=== PATIENT | male | born 1965 | race Caucasian/White ===

== ENCOUNTER 2017-01-07 19:29 | Emergency (ER) | payer MEDICAID ==
[~2017-01-07] VITALS: Ht 182.9 cm; Wt 77.1 kg
[~2017-01-07 19:29] MED LIST: ALPR0.25 PO
[2017-01-07 19:59] VITALS: BP 137/75
== END 2017-01-07 19:59 | disposition home or self-care (01) ==
LOC: ER 19:30
DX: F15.10 Other stimulant abuse, uncomplicated (principal); F32.9 Major depressive disorder, single episode, unspecified; F41.9 Anxiety disorder, unspecified; I10 Essential (primary) hypertension; J45.909 Unspecified asthma, uncomplicated; F17.200 Nicotine dependence, unspecified, uncomplicated
CPT/HCPCS: 99283; A4606; Z7610

== ENCOUNTER 2017-08-01 03:03 | Emergency (ER) | payer MEDICAID ==
[~2017-08-01] VITALS: Ht 182.9 cm; Wt 81.6 kg
[2017-08-01 03:16] VITALS: BP 120/69
--- NOTE | 2017-08-01 03:16 | NUR ---
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 PT ADMITS TO USING METH WITHIN THE LAST 24 HRS. PT AOX3 RR EVEN AND UNLABORED. NO SOB NOTED. NAD NOTED. NO NVD AT THIS TIME. PT GOWNED AND PLACED ON MONITOR WAITING FOR MD LAGUNA.
--- NOTE | 2017-08-01 03:25 | NUR ---
DR. COY AT BEDSIDE FOR EVAL.
== END 2017-08-01 03:49 | disposition home or self-care (01) ==
LOC: ER 03:04
DX: F41.9 Anxiety disorder, unspecified (principal); F15.10 Other stimulant abuse, uncomplicated; F32.9 Major depressive disorder, single episode, unspecified; I10 Essential (primary) hypertension; J45.909 Unspecified asthma, uncomplicated; F10.10 Alcohol abuse, uncomplicated; F17.200 Nicotine dependence, unspecified, uncomplicated
CPT/HCPCS: A4606; Z7610

== ENCOUNTER 2018-04-24 03:55 | Emergency (ER) | payer MEDICAID ==
[~2018-04-24] VITALS: Ht 182.9 cm; Wt 77.1 kg
--- NOTE | 2018-04-24 04:16 | NUR ---
DR VELZACO AT BEDSIDE FOR EVAL.
[2018-04-24 05:04] VITALS: BP 151/101
== END 2018-04-24 05:49 | disposition home or self-care (01) ==
LOC: ER 04:01
DX: F15.10 Other stimulant abuse, uncomplicated (principal); I10 Essential (primary) hypertension; J45.909 Unspecified asthma, uncomplicated; F32.9 Major depressive disorder, single episode, unspecified; F41.9 Anxiety disorder, unspecified; F17.200 Nicotine dependence, unspecified, uncomplicated; Z60.2 Problems related to living alone
CPT/HCPCS: A4606; Z7610

== ENCOUNTER 2018-04-24 11:08 | Emergency (ER) | payer MEDICAID ==
[~2018-04-24] VITALS: Ht 182.9 cm; Wt 66.7 kg
[2018-04-24] MEDS ORDERED: OLANZAPINE 5 MG TABLET PO ONE (11:30)
[2018-04-24] MEDS ORDERED: LORAZEPAM 1 MG TABLET PO ONE (11:30)
[2018-04-24] MEDS ORDERED: LORAZEPAM 1 MG TABLET ONE (11:32)
[2018-04-24] MEDS ORDERED: OLANZAPINE 5 MG TABLET ONE (11:32)
[2018-04-24 11:39] LABS: BASOPHILS % (AUTO) 0.3 % (0.0-2.0); EOSINOPHILS % (AUTO) 0.1 % (0.0-6.0); HEMATOCRIT 43 % (39-51); HEMOGLOBIN 14.6 g/dL (13.5-17.5); LYMPHOCYTES # (AUTO) 0.9 /CMM (0.8-4.8); LYMPHOCYTES % (AUTO) 9.3 % (20.0-44.0); MEAN CORPUSCULAR HGB CONC 34 g/dl (31.0-36.0); MEAN CORPUSCULAR VOLUME 104 fL (80-96); MONOCYTES # (AUTO) 0.9 /CMM (0.1-1.30); MONOCYTES % (AUTO) 9.2 % (2.0-12.0); NEUTROPHILS # (AUTO) 7.5 /CMM (1.8-8.9); NEUTROPHILS % (AUTO) 81.1 % (43.0-81.0); PLATELET COUNT (AUTO) 208 /CMM (150-450); RED BLOOD CELL COUNT(AUTO) 4.14 MIL/uL (4.5-6.0); WHITE BLOOD COUNT (AUTO) 9.3 K/uL (4.3-11.0)
[2018-04-24 11:50] LABS: CALCIUM, SERUM 9.2 mg/dL (8.5-10.1); CARBON DIOXIDE 27 mmol/L (21-32); CHLORIDE 105 mmol/L (98-107); CREATININE 1.3 mg/dL (0.6-1.3); GLUCOSE 72 mg/dL (74-106); POTASSIUM 3.5 mmol/L (3.5-5.1); SODIUM SERUM 144 mmol/L (136-145); UREA NITROGEN, BLOOD 20 mg/dL (7-18)
[2018-04-24 11:56] LABS: ALANINE AMINOTRANSFERASE 37 U/L (12-78); ALBUMIN 4.3 g/dL (3.4-5.0); ALKALINE PHOSPHATASE 69 U/L (46-116); ASPARTATE AMINOTRANSFERASE 58 U/L (15-37); BILIRUBIN,DIRECT 0.3 mg/dL (0.0-0.2); BILIRUBIN,TOTAL 1.2 mg/dL (0.2-1.0); SALICYLATE 0.3 mg/dL (2.8-20.0); TOTAL PROTEIN, SERUM 7.6 g/dL (6.4-8.2)
[2018-04-24 11:57] LABS: ACETAMINOPHEN 0 ug/ml (10-30); ALCOHOL, BLOOD < 3 mg/dL (0-0)
[2018-04-24 12:56] VITALS: BP 144/101
--- NOTE | 2018-04-24 12:58 | NUR ---
Patient discharged to home in stable condition. Written and verbal after care instructions given. Patient verbalizes understanding of instruction.
== END 2018-04-24 12:58 | disposition home or self-care (01) ==
LOC: ER 11:09
DX: F15.10 Other stimulant abuse, uncomplicated (principal); I10 Essential (primary) hypertension; J45.909 Unspecified asthma, uncomplicated; F32.9 Major depressive disorder, single episode, unspecified; F41.9 Anxiety disorder, unspecified; F17.200 Nicotine dependence, unspecified, uncomplicated; Z60.2 Problems related to living alone
CPT/HCPCS: 36415; 80048; 80076; 80329; 85025; 99284; G0480 ×2; A4606; Z7610

== ENCOUNTER 2019-07-19 14:01 | Emergency (ER) | payer MEDICAID ==
[~2019-07-19] VITALS: Ht 182.9 cm; Wt 74.8 kg
--- NOTE | 2019-07-19 14:29 | NUR ---
called to triage,no answer
[2019-07-19 14:52] VITALS: BP 150/78
[2019-07-19] MEDS ORDERED: LIDOCAINE 1%-EPI 1:100,000 20 ML VIAL ONE (19:28)
[2019-07-19] MEDS ORDERED: LIDOCAINE 1%-EPI 1:100,000 20 ML VIAL TP ONE (19:30)
[2019-07-19] MEDS ORDERED: TDAP [DIPH/PERTUSSIS/TET] 0.5 ML VIAL IM ONE ×2 (19:30→20:27)
[2019-07-19] MEDS ORDERED: CEFTRIAXONE 1 G VIAL IM ONE (21:00)
[2019-07-19] MEDS ORDERED: CEFTRIAXONE 1 G VIAL ONE (21:24)
[2019-07-19] MEDS ORDERED: LIDOCAINE /MPF 1% VIAL 5 ML VIAL ONE (21:25)
--- NOTE | 2019-07-19 22:54 | NUR ---
Patient discharged to home in stable condition. Written and verbal after care instructions given. Patient verbalizes understanding of instruction. Pt ambulatory with a steady gait
[2019-07-23] MEDS ORDERED: HYDR-4384 PO (12:00)
[2019-07-23] MEDS ORDERED: SULF1TAB48 PO (12:00)
== END 2019-07-19 22:55 | disposition home or self-care (01) ==
LOC: ER 14:06
DX: K61.0 Anal abscess (principal); I10 Essential (primary) hypertension; J45.909 Unspecified asthma, uncomplicated; F32.9 Major depressive disorder, single episode, unspecified; F41.9 Anxiety disorder, unspecified; F17.200 Nicotine dependence, unspecified, uncomplicated; Z60.2 Problems related to living alone; Z79.899 Other long term (current) drug therapy
CPT/HCPCS: 46050; 90471; 90715; 96372; 99284; A6403; A6407; J0696; J3490 ×2

== ENCOUNTER 2019-07-21 13:32 | Inpatient (IN) | payer MEDICAID ==
[~2019-07-21] VITALS: Ht 182.9 cm; Wt 73.5 kg
--- NOTE | 2019-07-21 13:49 | NUR ---
"I was here the other night have a wound at R butt cheek" pt awake, alert, -sob, nadn oted, vss, pendburakg md pani[place]
[2019-07-21 14:32] LABS: BASOPHILS # (AUTO) 0.1 /CMM (0.0-0.2); BASOPHILS % (AUTO) 1.5 % (0.0-2.0); EOSINOPHILS % (AUTO) 2.6 % (0.0-6.0); HEMATOCRIT 37 % (39-51); HEMOGLOBIN 12.7 g/dL (13.5-17.5); LYMPHOCYTES # (AUTO) 1.7 /CMM (0.8-4.8); LYMPHOCYTES % (AUTO) 21.2 % (20.0-44.0); MEAN CORPUSCULAR HGB CONC 34 g/dl (31.0-36.0); MEAN CORPUSCULAR VOLUME 108 fL (80-96); MONOCYTES # (AUTO) 0.9 /CMM (0.1-1.30); MONOCYTES % (AUTO) 11.2 % (2.0-12.0); NEUTROPHILS # (AUTO) 5.1 /CMM (1.8-8.9); NEUTROPHILS % (AUTO) 63.5 % (43.0-81.0); PLATELET COUNT (AUTO) 321 /CMM (150-450); RED BLOOD CELL COUNT(AUTO) 3.46 MIL/uL (4.5-6.0)
[2019-07-21 14:36] LABS: CALCIUM, SERUM 8.6 mg/dL (8.5-10.1); CREATININE 1.2 mg/dL (0.6-1.3); POTASSIUM 4.2 mmol/L (3.5-5.1)
[2019-07-21] MEDS ORDERED: CT SWABBABLE VALVE TRANS SET 1 EA INFUS.SET MC ONE (15:07)
[2019-07-21] MEDS ORDERED: IOHEXOL-300 100 ML VIAL IV ONE (15:07)
[2019-07-21] MEDS ORDERED: IV NS 0.9% 250 ML IV ONE (15:10)
[2019-07-21] MEDS ORDERED: VANCOMYCIN 1 GM in IV D5W 250 ML IV ONE (17:00)
[2019-07-21] MEDS ORDERED: VANCOMYCIN 1 GM VIAL ONE ×2 (17:02→22:08)
--- NOTE | 2019-07-21 17:12 | NUR ---
CALLED NURSING SUP FOR M/S BED.
[2019-07-21] MEDS ORDERED: ACYC800T PO (17:18)
[2019-07-21] MEDS ORDERED: GABA-534 PO (17:18)
[2019-07-21] MEDS ORDERED: MULT-447 PO (17:18)
[2019-07-21] MEDS ORDERED: ABAC1TAB15 PO (17:18)
[2019-07-21] MEDS ORDERED: OMEG1CAP PO (17:18)
[2019-07-21] MEDS ORDERED: PROP10TA68 PO (17:18)
[2019-07-21] MEDS ORDERED: ATOR10TA PO (17:18)
[2019-07-21] MEDS ORDERED: ESCI10TA PO (17:18)
[2019-07-21] MEDS ORDERED: TRAZ-257 PO (17:18)
[2019-07-21] MEDS ORDERED: DIPH-824 PO (17:18)
--- NOTE | 2019-07-21 20:03 | NUR ---
REPORT GIVEN TO MONIQUE MON FOR W[facility] PT WILL BE TRANPOSRTED TO 2ND FLOOR
[2019-07-21 20:19] VITALS: BP 122/75
--- NOTE | 2019-07-21 20:27 | NUR ---
PT TRANSPORTED TO 2ND FLOOR
[2019-07-21] MEDS ORDERED: MAG HYDROX/AL HYDROX/SIMETH 30 ML UDC PO PRN (20:30)
[2019-07-21] MEDS ORDERED: MORPHINE SULFATE INJ 2 MG/ML DISP.SYRIN IV PRN (20:30)
[2019-07-21] MEDS ORDERED: HYDROCODONE/APAP 5/325MG 1 EACH TABLET PO PRN (20:30)
[2019-07-21] MEDS ORDERED: diphenhydrAMINE HCL 25 MG CAPSULE PO PRN (20:30)
[2019-07-21] MEDS ORDERED: MAGNESIUM HYDROXIDE 30 ML UDC PO PRN (20:30)
[2019-07-21] MEDS ORDERED: Z GUARD REMEDY 2 OZ OINT TP PRN (20:30)
[2019-07-21] MEDS ORDERED: ACETAMINOPHEN 325 MG TABLET PO PRN (20:30)
[2019-07-21] MEDS ORDERED: ONDANSETRON HCL/PF 4 MG/2 ML VIAL IVP PRN (20:30)
[2019-07-21] MEDS ORDERED: FEE PK DOSING 1 MIN EA MC ONE (20:31)
--- NOTE | 2019-07-21 20:53 | NUR ---
KRISTINE NARAYAN PATIENT C/O LATHA NICOLAS ORDERED REGULAR DIET RIGHT NOW AND NPO EXCEPT MEDS AT 0000 07/22/2019 READ BACK AND VERIFIED ORDERS NOTED AND CARRIED OUT
[2019-07-21] MEDS: IV NS 0.9% 1,000 ML IV PRN (21:15)
[2019-07-21] MEDS: ATORVASTATIN 10 MG TABLET PO SCH (21:59)
[2019-07-21] MEDS: TRAZODONE 50 MG TABLET PO SCH (21:59)
[2019-07-21] MEDS: GABAPENTIN 300 MG CAPSULE PO SCH (21:59)
[2019-07-21] MEDS ORDERED: Abacavir/Dolutegravir/Lamivudi (Triumeq Tablet) PO SCH (22:00)
--- NOTE | 2019-07-21 22:00 | NUR ---
RECEIVE PT VIA JOSE ROBERTO FROM [facility] 2018 PT A/O X 4, NO APPARENT DISTRESS, RESPIRATIONS EVEN AND UNLABORED. COMPLAINING OF PERSISTENT PERIANAL ABSCESS. HEAD TO TOE ASSESSMENT IS DONE. NO C/O OF PAIN. DENIES VOMITING AND DIARRHEA. KEPT CLEAN, DRY AND COMFORTABLE. WILL CONTINUE TO MONITOR
[2019-07-21] MEDS ORDERED: ACYCLOVIR 200 MG CAPSULE ONE (22:07)
[2019-07-21] MEDS: ACYCLOVIR 800 MG TABLET PO SCH (22:13)
[2019-07-21] MEDS ORDERED: ACYCLOVIR 200 MG CAPSULE PO SCH (23:30)
[2019-07-22] MEDS: VANCOMYCIN 0.75 GM in IV D5W 250 ML IV SCH ×3 (00:59→16:17)
--- NOTE | 2019-07-22 06:36 | NUR ---
PT ASLEEP AND EASILY AWAKEN, SLEPT WELL. NOT IN APPARENT DISTRESS. AM CARE RENDERED, KEPT CLEAN, DRY AND COMFORTABLE. NEEDS ATTENDED AND ANTICIPATED. SAFETY MEASURES AT ALL TIMES. WILL ENDORSE NEXT SHIFT POC.
--- NOTE | 2019-07-22 07:38 | NUR ---
RN OPENING NOTES Patient received on room air, no sob noted, patient denies pain at this time. NPO except meds at this time. L AC 18 with NS @ 75 ml per hour. Patient lying down comfortably on her bed with no issues. Bed at the lowest setting, call light within reach, side rails up x2.
[2019-07-22 08:00] VITALS: BP 100/58
[2019-07-22 08:30] LABS: BASOPHILS % (AUTO) 0.8 % (0.0-2.0); EOSINOPHILS % (AUTO) 4.5 % (0.0-6.0); HEMATOCRIT 36 % (39-51); HEMOGLOBIN 12.2 g/dL (13.5-17.5); LYMPHOCYTES # (AUTO) 1.5 /CMM (0.8-4.8); LYMPHOCYTES % (AUTO) 25.7 % (20.0-44.0); MEAN CORPUSCULAR HGB CONC 34 g/dl (31.0-36.0); MEAN CORPUSCULAR VOLUME 107 fL (80-96); MONOCYTES # (AUTO) 0.7 /CMM (0.1-1.30); MONOCYTES % (AUTO) 11.7 % (2.0-12.0); NEUTROPHILS # (AUTO) 3.4 /CMM (1.8-8.9); NEUTROPHILS % (AUTO) 57.3 % (43.0-81.0); PLATELET COUNT (AUTO) 312 /CMM (150-450); RED BLOOD CELL COUNT(AUTO) 3.36 MIL/uL (4.5-6.0); WHITE BLOOD COUNT (AUTO) 5.9 K/uL (4.3-11.0)
[2019-07-22] MEDS: ESCITALOPRAM OXALATE (10 MG) 10 MG TABLET PO SCH (09:00)
[2019-07-22] MEDS: MULTIVIT W/MINERALS 1 TAB TABLET PO SCH (09:00)
[2019-07-22] MEDS: DOCUSATE SODIUM 100 MG CAPSULE PO SCH ×2 (09:00→16:39)
[2019-07-22] MEDS ORDERED: Medication Not On Formulary EA (Omega-3 Fatty Acids/Fish Oil (Fish Oil 1,000 Mg Capsule) PO SCH (09:00)
[2019-07-22] MEDS: PROPRANOLOL HCL 10 MG TABLET PO SCH ×2 (09:00→16:39)
[2019-07-22 09:48] LABS: CALCIUM, SERUM 8.3 mg/dL (8.5-10.1); CREATININE 0.9 mg/dL (0.6-1.3); MAGNESIUM 1.8 mg/dL (1.8-2.4); PHOSPHORUS 3.7 mg/dL (2.5-4.9); POTASSIUM 4.5 mmol/L (3.5-5.1)
[2019-07-22 10:01] LABS: THYROID STIMULATING HORMONE 2.386 uIU/mL (0.358-3.74)
[2019-07-22] MEDS: LORAZEPAM 1 MG TABLET PO PRN ×2 (10:56→16:36)
[2019-07-22 16:00] VITALS: BP 108/71
--- NOTE | 2019-07-22 18:16 | NUR ---
RN CLOSING NOTES Patient remains on room air, no sob noted, patient denies pain at this time. Patient remains NPO except medications at this time. L AC 18 NS @ 75 ml per hour running. Wound culture sent to lab. Bed at the lowest setting, call light within reach, side rails up x2. Will give report to NOC RN for [facility]ILBER bedside.
[2019-07-22] MEDS ORDERED: LIDOCAINE 1%-EPI 1:100,000 20 ML VIAL TP STA (18:57)
--- NOTE | 2019-07-22 19:30 | NUR ---
MS RN RECEIVED PATIENT IN BED AWAKE WATCHING TV A/O X 4, STABLE AND NOT IN DISTRESS. WILL CONTINUE TO MONITOR
[2019-07-22 20:00] VITALS: BP 110/56
[2019-07-22] MEDS ORDERED: LIDOCAINE 2%-EPI 1:100,000 30 ML VIAL ONE (20:02)
--- NOTE | 2019-07-22 20:15 | NUR ---
S/P I/D LEFT BUTTOCKS BY DR. ERVIN. PT TOLERATED PROCEDURE.
[2019-07-22] MEDS: ACYCLOVIR 800 MG TABLET PO SCH (21:39)
[2019-07-22] MEDS: ATORVASTATIN 10 MG TABLET PO SCH (21:39)
[2019-07-22] MEDS: GABAPENTIN 300 MG CAPSULE PO SCH (21:39)
[2019-07-22] MEDS: TRAZODONE 50 MG TABLET PO SCH (21:39)
[2019-07-22 21:48] VITALS: BP 110/56
[2019-07-22] MEDS: IV NS 0.9% 1,000 ML IV PRN (22:13)
[2019-07-23] MEDS: VANCOMYCIN 0.75 GM in IV D5W 250 ML IV SCH ×3 (01:45→16:53)
--- NOTE | 2019-07-23 05:27 | NUR ---
MS RN PT CANNOT PROVIDE TRIUMEQ TABLET AT THIS TIME. WILL FF UP PHARMACY
[2019-07-23] MEDS: LORAZEPAM 1 MG TABLET PO PRN (06:23)
--- NOTE | 2019-07-23 06:26 | NUR ---
PT SLEPT WELL. STABLE CONDITION, KEPT CLEAN, DRY AND COMFORTABLE. NEEDS ATTENDED AND ANTICIPATED. S/P I/D LEFT BUTTOCK ABSCESS, DRESSING INTACT, CLEAN. MONITORED FOR PAIN, CALM AT THIS TIME. SAFETY MEASURES AT ALL TIMES. WILL ENDORSE NEXT SHIFT POC.
[2019-07-23 06:55] LABS: CALCIUM, SERUM 8.3 mg/dL (8.5-10.1); CREATININE 0.8 mg/dL (0.6-1.3)
--- NOTE | 2019-07-23 07:25 | NUR ---
MS RN NOTES PATIENT IN BED ALERT ORIENTED X 3. NO ACUTE DISTRESS NOTED. BREATHING UNLABORED. NO SOB NOTED. IV ACCESS PATENT AND INTACT, NO REDNESS, NO SWELLING NOTED. SAFETY MEASURES IN PLACE. CALL LIGHT WITHIN REACH. WILL CONTINUE TO MONITOR ACCORDINGLY.
[2019-07-23 08:00] VITALS: BP 111/71
[2019-07-23] MEDS: DOCUSATE SODIUM 100 MG CAPSULE PO SCH ×2 (08:58→16:53)
[2019-07-23] MEDS: ESCITALOPRAM OXALATE (10 MG) 10 MG TABLET PO SCH (08:59)
[2019-07-23] MEDS: PROPRANOLOL HCL 10 MG TABLET PO SCH ×2 (08:59→16:53)
[2019-07-23] MEDS: MULTIVIT W/MINERALS 1 TAB TABLET PO SCH (08:59)
--- NOTE | 2019-07-23 11:00 | NUR ---
MS RN NOTES TOLD PATIENT REGARDING HOME MEDICATION TRIUMEQ TABLET TO BRING FROM HOLD. PATIENT SAID HE WILL HAVE SOMEONE BRING IT HERE AT THE HOSPITAL
--- NOTE | 2019-07-23 11:27 | NUR ---
MS RN NOTES PATIENT SEEN AND EVALUATED BY DR GUSTAVO ESCOBEDO WITH NEW ORDERS MADE, NOTED AND CARRIED OUT.
--- NOTE | 2019-07-23 11:38 | NUR ---
MS RN NOTES RECEIVED NEW ORDERS FROM LEEANNE ISLAS FOR LEFT BUTTOCKS WOUND CARE: WET TO DRY DRESSING, PACKING WITH STERILE GAUZE SOAKED WITH DAIKINS 07/08 , COVER DRY DRESSING DAILY AND FOLLOW UP WITH LEEANNE ISLAS AT THE WOUND CLINIC IN 1-2 WEEKS @[address] [place] [address], [place] , ORDERS CLARIFIED AND READ BACK, NOTED AND CARRIED OUT.
[2019-07-23] MEDS ORDERED: HYDR-4384 PO (12:00)
[2019-07-23] MEDS ORDERED: SULF1TAB48 PO (12:00)
[2019-07-23] MEDS: HYDROCODONE/APAP 10/325MG 1 EA TABLET PO PRN (12:44)
--- NOTE | 2019-07-23 12:54 | NUR ---
MS RN NOTES PATIENT REFUSING DRESSING CHANGED ON LEFT BUTTOCKS ORDERED BY LEEANNE ISLAS PATIENT STATED THAT "I WANT DRESSING CHANGE ON MY LEFT BUTTOCKS TOMORROW", RISKS AND BENEFITS EXPLAINED , PATIENT REFUSED. NOTIFIED DR LEEANNE ERVIN.
[2019-07-23 16:00] VITALS: BP 112/74
[2019-07-23] MEDS: DAKINS QUARTER STRENGTH (0.125%) 480 ML BOTTLE TOP SCH ×2 (16:51→17:00)
--- NOTE | 2019-07-23 17:14 | NUR ---
MS RN NOTES OFFERED DRESSING CHANGE AGAIN TO PATIENT AGREED AND CHANGED MIND AGAIN AND REFUSED DRESSING CHANGE AND PHOTO TAKEN DESPITE OF EXPLANATION OF RISKS AND BENEFITS, NOTIFIED DR ARCADIO FALLON AND DR GUSTAVO ESCOBEDO MADE AWARE. PATIENT ALSO REFUSED TO BE DISCHARGE TODAY, DR GUSTAVO ESCOBEDO AND DR ARCADIO FALLON MADE AWARE.
--- NOTE | 2019-07-23 18:19 | NUR ---
MS RN NOTES RECEIVED LABORATORY RESULT PATIENT POSITIVE MRSA NARES, NOTIFIED DR ESCOBEDO WITH ORDERS FOR Bactroban Oint 2% Q12HR APPLY OF NOSTRILS AND MRSA Contact Isolation FOR MRSA NARES. ORDER CLARIFIED AND READ BACK ,NOTED AND CARRIED OUT. PATIENT PLACED ON CONTACT ISOLATION.
--- NOTE | 2019-07-23 19:00 | NUR ---
MS RN NOTES PATIENT IN BED ALERT ORIENTED X 3. NO ACUTE DISTRESS NOTED. BREATHING UNLABORED. NO SOB NOTED. IV ACCESS PATENT AND INTACT, NO REDNESS, NO SWELLING NOTED. NEEDS ATTENDED AND ANTICIPATED. SAFETY MEASURES IN PLACE. CALL LIGHT WITHIN REACH. WILL ENDORSE TO NIGHT NURSE FOR CONTINUITY OF CARE.
--- NOTE | 2019-07-23 19:05 | NUR ---
MS RN OPENING NOTES Received patient awake on bed, on RA, no SOB/respiratory distress noted. IV line noted infiltrated, held IVF at this time. Patient denies any other discomfort except the LAC. On isolation for MRSA, observed by all HCPs. Patient noted drinking adequate fluids, ensured water within reach. Kept on bed clean, dry and comfortable. Call light within easy reach. On fall and aspiration precautions. Will continue to monitor accordingly.
[2019-07-23 20:24] VITALS: BP 117/71
[2019-07-23] MEDS: TRAZODONE 50 MG TABLET PO SCH (21:11)
[2019-07-23] MEDS: GABAPENTIN 300 MG CAPSULE PO SCH (21:11)
[2019-07-23] MEDS: ATORVASTATIN 10 MG TABLET PO SCH (21:11)
[2019-07-23] MEDS: MUPIROCIN OINT 2% 22 GM TUBE SCH (21:14)
[2019-07-23] MEDS: ACYCLOVIR 800 MG TABLET PO SCH (21:20)
--- NOTE | 2019-07-23 21:31 | NUR ---
MS RN NOTES REINSERTED IV LINE JORDAN G#22, GOOD BLOOD RETURN NOTED AFTER 1ST ATTEMPT. SECURED ASEPTICALLY. RESTARTED IVF ORDERD. WILL CONTINUE TO MONITOR ACCORDINGLY.
[2019-07-24] MEDS: VANCOMYCIN 0.75 GM in IV D5W 250 ML IV SCH ×2 (01:14→08:44)
[2019-07-24 06:49] LABS: CALCIUM, SERUM 8.1 mg/dL (8.5-10.1); CREATININE 0.9 mg/dL (0.6-1.3); POTASSIUM 4.3 mmol/L (3.5-5.1)
--- NOTE | 2019-07-24 06:52 | NUR ---
MS RN CLOSING NOTES PATIENT ASLEEP, EASILY AWAKEN. NO NEW UNUSUALITIES NOTED. AFEBRILE THE WHOLE SHIFT. ALL DUE MEDS GIVEN ORDERED. ALL NURSING NEEDS ATTENDED. REINSERTED IV LINE, WILL CONTINUE TO MONITOR. PATIENT REFUSED WOUND DRESSING AT THIS TIME, REFUSED PHOTO TAKEN. KEPT ON BED CLEAN, DRY AND COMFORTABLE. CALL LIGHT WITHIN EASY REACH. ON FALL AND ASPIRATION PRECAUTIONS. ENDORSED.
--- NOTE | 2019-07-24 07:22 | NUR ---
RN OPENING NOTE PT WAS RECEIVED IN BED AT LOWEST AND LOCKED POSITION WITH SIDE RAILS UP X2, PT ASLEEP BREATHING EVEN AND UNLABORED ON RA, NO S/S OF ANY DISTRESS OR PAIN NOTED AT THIS TIME, IV IS PATENT AND INTACT, INFORMED BY NIGHT RN THAT PT REFUSED TO BE DISCHARGED YESTERDAY WITH PLAN TO POSSIBLY BE D/C THIS AM, SAFETY PRECAUTIONS IN PLACE, CALL LIGHT IN REACH, WILL MONITOR ACCORDINGLY
[2019-07-24 08:00] VITALS: BP 136/89
[2019-07-24] MEDS: MULTIVIT W/MINERALS 1 TAB TABLET PO SCH (08:29)
[2019-07-24] MEDS: ESCITALOPRAM OXALATE (10 MG) 10 MG TABLET PO SCH (08:29)
[2019-07-24] MEDS: DOCUSATE SODIUM 100 MG CAPSULE PO SCH (08:29)
[2019-07-24 08:35] VITALS: BP 136/89
[2019-07-24] MEDS: PROPRANOLOL HCL 10 MG TABLET PO SCH (08:35)
[2019-07-24] MEDS: MUPIROCIN OINT 2% 22 GM TUBE SCH (08:35)
[2019-07-24] MEDS: DAKINS QUARTER STRENGTH (0.125%) 480 ML BOTTLE TOP SCH (09:00)
--- NOTE | 2019-07-24 09:00 | NUR ---
RN NOTE PT REFUSED WOUND TX AT THIS TIME STATING HE WANTS A LOCAL ANAESTHETIC TO BE GIVEN BEFORE HAND. INFORMED THAT IT IS OUT OF MY SCOPE OF PRACTICE AND THAT THE MD WILL NOT PERFORM THAT SINCE THE LIDOCAINE WAS ONLY USED FOR DEBRIDMENT. PT AWARE AND EDUCATED BUT HE STILL REFUSED.
--- NOTE | 2019-07-24 10:30 | NUR ---
RN NOTE PT ENCOURAGED AND INFORMED OF GIVING NORCO 1 HOUR BEFORE WOUND TX. PT AGREEABLE AND WILL ATTEMPT WOUND CARE IN ABOUT 1 HOUR.
[2019-07-24] MEDS: HYDROCODONE/APAP 10/325MG 1 EA TABLET PO PRN (10:47)
--- NOTE | 2019-07-24 11:55 | NUR ---
RN NOTE WOUND TX DONE AT THIS TIME
--- NOTE | 2019-07-24 14:50 | NUR ---
RN NOTE PT INFORMED TO WAIT TO CLARIFY PHARMACY AND PRESCRIPTIONS, BUT PT STATED HE JUST WANTS TO LEAVE NOW SINCE HIS RIDE IS HERE AND THAT HE WILL TRY TO GET THE PRESCRIPTIONS AND FIGURE IT OUT ON HIS OWN. PT INFORMED THAT BEST CHOICE PHARMACY WOULD BE WILLING TO FAX OVER THE ANTIBIOTIC BUT NOT THE NARCOTIC. HE WAS MADE AWARE AND INFORMED THAT IF HE DOES NOT WAIT WE MAY NOT BE ABLE TO SEND OVER THE NARCOTIC TO THE NEW PHARMACY. PT AWARE AND STILL WANTS TO LEAVE.
--- NOTE | 2019-07-24 15:04 | NUR ---
Social service consult requested by community case manager Latesha for referrals to drug treatment programs. Upon chart review and MD notes, pt is a 54- year-old male with a history of HIV (reportedly last CD4 was > 1000) who presented to the ER complaining of persistent perianal abscess that started about 9 days ago. Pt was standing outside his room, when GLASS SELECTOR went to visit the pt. Pt. is alert and oriented x 4. GLASS SELECTOR provided active listening and supported counseling and gave pt list of referrals to drug rehab programs such as [facility], [facility], [facility] centers etc. No other social service needs are requested at this time. GLASS SELECTOR is available, if needed.
--- NOTE | 2019-07-24 15:05 | NUR ---
DISCHARGE NOTE PT WAS D/C AT THIS TIME IN MEDICALLY STABLE CONDITION BACK HOME WITH HOME HEALTH. A/O X4, AMBULATORY BREATHING EVEN AND UNLABORED VS STABLE. IV AND ID BAND WERE REMOVED. ALL EXITCARE, D/C PAPEWORK, AND BELONGING LIST WERE SIGNED, DISCUSSED, AND HANDED TO THE PATIENT. PT REFUSED FOR PHOTO OF SKIN TO BE TAKEN BUT DID ALLOW DRESSING CHANGE. ALL NEEDS WERE ATTENDED TO DURING HIS STAY. PT LEFT AT THIS TIME IN STABLE CONDITION WITH HIS FRIENDS IN THEIR PRIVATE CAR.
== END 2019-07-24 15:00 | disposition home or self-care (01) | DRG 254 ==
LOC: ER 13:32 → MEDSG2 17:35
PROVIDERS: ADMIT Nurse Practitioner Acute Care; ATTEND Internal Medicine
PROC: 0JB90ZZ Excision of Buttock Subcutaneous Tissue and Fascia, Open Approach (ICD-10-PCS; principal; 2019-07-22)
DX: K61.0 Anal abscess (principal); D53.9 Nutritional anemia, unspecified; J45.909 Unspecified asthma, uncomplicated; F15.90 Other stimulant use, unspecified, uncomplicated; L02.31 Cutaneous abscess of buttock; F32.9 Major depressive disorder, single episode, unspecified; K40.90 Unilateral inguinal hernia, without obstruction or gangrene, not specified as recurrent; Z91.19 Patient's noncompliance with other medical treatment and regimen; F41.9 Anxiety disorder, unspecified; Z79.899 Other long term (current) drug therapy
CPT/HCPCS: 36415; 80048-TC; 80061-TC; 80202-TC; 83735-TC; 84100-TC; 84443-TC; 85025-TC; 85730-TC; 87040-TC; 87070-TC; 87081-TC; A6407; G0378; J2270; J3370; J3490; J7030; J7050; J7060; Q9967

== ENCOUNTER 2019-09-03 22:19 | Emergency (ER) | payer MEDICAID ==
[~2019-09-03] VITALS: Ht 182.9 cm; Wt 79.4 kg
[~2019-09-03 22:19] MED LIST changes: +ABAC1TAB15 PO; +ACYC800T PO; -ALPR0.25 PO; +ATOR10TA PO; +DIPH-824 PO; +ESCI10TA PO; +GABA-534 PO; +HYDR-4384 PO; +MULT-447 PO; +OMEG1CAP PO; +PROP10TA68 PO; +SULF1TAB48 PO; +TRAZ-257 PO
--- NOTE | 2019-09-03 22:30 | NUR ---
PT BIBRA AND [employer] FROM STREET. 911 CALLED BY BYSTANDER DUE TO INAPPROPRIATE BEHAVIOR. PER RA, PT WAS MASTERBATING IN PUBLIC. 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 PT AWAKE, SPEAKING INCOHERENTLY. APPEARS DISHEVELED. NOTED HYPERTENSION AND TACHYCARDIA ON ARRIVAL, MD AWARE. PT PLACED IN ER BED 13, PLACED ON MONITOR, WILL CONTINUE TO MONITOR
--- NOTE | 2019-09-04 00:40 | NUR ---
Patient is resting comfortably in bed with eyes closed. Easily aroused. VSS
--- NOTE | 2019-09-04 04:57 | NUR ---
PT RESTING IN BED. EASILY AROUSABLE. WILL CONTINUE TO MONITOR
--- NOTE | 2019-09-04 08:30 | NUR ---
Social service consult requested by MD for referrals to drug treatment programs. Per MD notes, pt is a 54- year-old male with a history of HIV who was brought in yesterday by EMS and police. Police were called by bystanders as patient was acting inappropriate on the street. Police report that he was masturbating in public. Does admit to using meth approximately 2 hours ago. PEWTER CASTER met with the pt bedside in ED. PEWTER CASTER is familiar with the pt from an inpatient admission. Pt. is alert and oriented x 4. PEWTER CASTER provided active listening and supported counseling and gave pt list of referrals to drug rehab programs such as [facility], [facility], [facility] centers etc. Pt denies suicidal and homicidal ideations and visual/auditory hallucinations at this time. No other social service needs are requested at this time.
--- NOTE | 2019-09-04 08:52 | NUR ---
PATIENT A/OX4, BREATHING EVEN AND UNLABORED, SEEN BY DAIRY WORKER AND RESOURCES PROVIDED. PATIENT DENIES BEING HOMELESS, WAS ABLE TO OBTAIN HIS OWN TRANSPORTATION. PATIENT AMBULATORY WITH STEADY GAIT. Patient discharged to home in stable condition. Written and verbal after care instructions given. Patient verbalizes understanding of instruction.
[2019-09-04 08:53] VITALS: BP 154/74
== END 2019-09-04 08:53 | disposition home or self-care (01) ==
LOC: ER 22:20
DX: F15.10 Other stimulant abuse, uncomplicated (principal); I10 Essential (primary) hypertension; F32.9 Major depressive disorder, single episode, unspecified; F41.9 Anxiety disorder, unspecified; F17.200 Nicotine dependence, unspecified, uncomplicated; Z90.89 Acquired absence of other organs; Z60.2 Problems related to living alone; Z79.899 Other long term (current) drug therapy

== ENCOUNTER 2020-07-09 17:07 | Emergency (ER) | payer MEDICAID ==
[~2020-07-09] VITALS: Ht 177.8 cm; Wt 72.6 kg
[2020-07-09 17:17] VITALS: BP 118/76
[2020-07-09] MEDS ORDERED: LORAZEPAM INJ 2 MG/ML VIAL IM ONE (17:30)
[2020-07-09] MEDS ORDERED: LORAZEPAM INJ 2 MG/ML VIAL ONE (17:31)
--- NOTE | 2020-07-09 22:10 | NUR ---
REFUSED COVID SWAB.
== END 2020-07-09 23:07 | disposition home or self-care (01) ==
LOC: ER 17:16
DX: F41.9 Anxiety disorder, unspecified (principal); F15.10 Other stimulant abuse, uncomplicated; F32.9 Major depressive disorder, single episode, unspecified; I10 Essential (primary) hypertension; R00.2 Palpitations; Z90.89 Acquired absence of other organs; Z98.890 Other specified postprocedural states; Z60.2 Problems related to living alone; Z79.899 Other long term (current) drug therapy
CPT/HCPCS: 96372; 99283; J2060

== ENCOUNTER 2021-08-03 13:39 | Emergency (ER) | payer MEDICAID ==
[~2021-08-03] VITALS: Ht 182.9 cm; Wt 73.5 kg
[~2021-08-03 13:39] MED LIST changes: +ACYC-108 PO; -ACYC800T PO
--- NOTE | 2021-08-03 13:39 | NUR ---
PT [address]AF[address] C/O METH USED. "HE'S RUNNING IN THE STREET NAKED" PT IS AAOX4, NO IN RESPIRATORY DISTRESS, HOOKED TO NURSE PLASTICS, KEPT RESTED AND COMFORTABLE. WILL CONTINUE TO MONITOR.
--- NOTE | 2021-08-03 13:47 | NUR ---
SEEN AND EXAMINED BY .
[2021-08-03 14:02] LABS: BASOPHILS % (AUTO) 0.1 % (0.0-2.0); HEMATOCRIT 45 % (39-51); HEMOGLOBIN 15.6 g/dL (13.5-17.5); LYMPHOCYTES # (AUTO) 0.8 K/uL (0.8-4.8); LYMPHOCYTES % (AUTO) 5.6 % (20.0-44.0); MEAN CORPUSCULAR HGB CONC 35 g/dl (31.0-36.0); MEAN CORPUSCULAR VOLUME 102 fL (80-96); MONOCYTES # (AUTO) 1.4 K/uL (0.1-1.30); MONOCYTES % (AUTO) 9.3 % (2.0-12.0); NEUTROPHILS # (AUTO) 12.5 K/uL (1.8-8.9); PLATELET COUNT (AUTO) 208 K/uL (150-450); WHITE BLOOD COUNT (AUTO) 14.8 K/uL (4.3-11.0)
--- NOTE | 2021-08-03 14:18 | NUR ---
URINE COLLECTED AND SENT TO THE LAB
[2021-08-03 14:20] LABS: ALANINE AMINOTRANSFERASE 83 U/L (12-78); ALBUMIN 4.9 g/dL (3.4-5.0); ALCOHOL, BLOOD < 3 mg/dL (0-0); ALKALINE PHOSPHATASE 70 U/L (46-116); ASPARTATE AMINOTRANSFERASE 308 U/L (15-37); BILIRUBIN,DIRECT 0.3 mg/dL (0.0-0.2); BILIRUBIN,TOTAL 1.5 mg/dL (0.2-1.0); CALCIUM, SERUM 9.6 mg/dL (8.5-10.1); CARBON DIOXIDE 23 mmol/L (21-32); CHLORIDE 102 mmol/L (98-107); CREATININE 1.4 mg/dL (0.6-1.3); GLUCOSE 129 mg/dL (74-106); POTASSIUM 3.3 mmol/L (3.5-5.1); SODIUM SERUM 139 mmol/L (136-145); TOTAL PROTEIN, SERUM 8.5 g/dL (6.4-8.2); UREA NITROGEN, BLOOD 28 mg/dL (7-18)
[2021-08-03 14:26] LABS: ACETAMINOPHEN < 2 ug/ml (10-30)
[2021-08-03 15:09] LABS: BILIRUBIN,URINE NEGATIVE (NEGATIVE); COLOR,URINE YELLOW (YELLOW); LEUKOCYTE ESTERASE ,URINE NEGATIVE (NEGATIVE); NITRITE, URINE NEGATIVE (NEGATIVE); PH,URINE 5.5 (5.0-8.0); PROTEIN,URINE >=300 mg/dl (NEGATIVE); UGLUCOSE NEGATIVE (NEGATIVE); UROBILINOGEN,URINE 0.2 EU/dL (0.2)
[2021-08-03 15:25] LABS: BACTERIA,URINE None seen /HPF (None Seen); COARSE GRANULAR CASTS,URINE Few /LPF (None Seen); HYALINE CASTS, URINE Few /LPF (None Seen); MUCUS,URINE Few /LPF (None Seen); RBC,URINE 51-80 /HPF (0-2); SPERM,URINE Moderate /HPF (None Seen)
[2021-08-03] MEDS ORDERED: LORAZEPAM INJ 2 MG/ML VIAL IV ONE (15:30)
[2021-08-03] MEDS ORDERED: LORAZEPAM INJ 2 MG/ML VIAL ONE (15:33)
--- NOTE | 2021-08-03 20:05 | NUR ---
Patient discharged to home in stable condition. Written and verbal after care instructions given. Patient verbalizes understanding of instruction. Pt ambulatory with a steady gait
[2021-08-03 23:00] VITALS: BP 151/90
== END 2021-08-03 20:05 | disposition home or self-care (01) ==
LOC: ER 13:44
DX: F15.10 Other stimulant abuse, uncomplicated (principal); I10 Essential (primary) hypertension; R00.2 Palpitations; F32.9 Major depressive disorder, single episode, unspecified; F41.9 Anxiety disorder, unspecified; B20 Human immunodeficiency virus [HIV] disease; F17.200 Nicotine dependence, unspecified, uncomplicated; Z90.89 Acquired absence of other organs; Z79.51 Long term (current) use of inhaled steroids; Z79.811 Long term (current) use of aromatase inhibitors; Z79.891 Long term (current) use of opiate analgesic; Z79.810 Long term (current) use of selective estrogen receptor modulators (SERMs); Z79.899 Other long term (current) drug therapy; Z60.2 Problems related to living alone
CPT/HCPCS: 36415; 80048; 80076; 80143; 80307; 80320; 81001; 85025; 96374; 99283; J2060; G0480

== ENCOUNTER 2022-11-26 10:04 | Emergency (ER) | payer MEDICAID ==
[~2022-11-26] VITALS: Ht 182.9 cm; Wt 73.5 kg
--- NOTE | 2022-11-26 10:04 | NUR ---
BIBA FOR ACCIDENTAL INGESTION OF 5 PILLS OXYCODONE (UNKNOWN CONCENTRATION) ABOUT 2 HOURS AGO. A/O X 3, ABLE TO MAKE NEEDS KNOWN, TOLERATING WELL ON ROOM AIR. SAFETY MEASURES IN PLACE. WILL CONTINUE TO MONITOR.
--- NOTE | 2022-11-26 10:32 | NUR ---
BLOOD SAMPLES OBTAINED
[2022-11-26 10:36] LABS: BASOPHILS # (AUTO) 0.1 K/uL (0.0-0.2); BASOPHILS % (AUTO) 0.5 % (0.0-2.0); EOSINOPHILS % (AUTO) 0.1 % (0.0-6.0); HEMATOCRIT 46 % (39-51); HEMOGLOBIN 15.9 g/dL (13.5-17.5); LYMPHOCYTES # (AUTO) 1.3 K/uL (0.8-4.8); MEAN CORPUSCULAR HGB CONC 35 g/dl (31.0-36.0); MEAN CORPUSCULAR VOLUME 102 fL (80-96); MONOCYTES # (AUTO) 1.1 K/uL (0.1-1.30); MONOCYTES % (AUTO) 9.9 % (2.0-12.0); NEUTROPHILS # (AUTO) 8.6 K/uL (1.8-8.9); NEUTROPHILS % (AUTO) 77.5 % (43.0-81.0); PLATELET COUNT (AUTO) 328 K/uL (150-450); RED BLOOD CELL COUNT(AUTO) 4.51 MIL/uL (4.5-6.0); WHITE BLOOD COUNT (AUTO) 11.1 K/uL (4.3-11.0)
[2022-11-26 10:55] LABS: CALCIUM, SERUM 10.2 mg/dL (8.5-10.1); CARBON DIOXIDE 27 mmol/L (21-32); CHLORIDE 101 mmol/L (98-107); CREATININE 1.1 mg/dL (0.6-1.3); GLUCOSE 114 mg/dL (74-106); POTASSIUM 3.5 mmol/L (3.5-5.1); SODIUM SERUM 139 mmol/L (136-145); UREA NITROGEN, BLOOD 25 mg/dL (7-18)
[2022-11-26 11:01] LABS: ALANINE AMINOTRANSFERASE 52 U/L (12-78); ALBUMIN 4.6 g/dL (3.4-5.0); ALCOHOL, BLOOD < 3 mg/dL (0-0); ALKALINE PHOSPHATASE 87 U/L (46-116); ASPARTATE AMINOTRANSFERASE 52 U/L (15-37); BILIRUBIN,DIRECT 0.2 mg/dL (0.0-0.2); BILIRUBIN,TOTAL 0.8 mg/dL (0.2-1.0); TOTAL PROTEIN, SERUM 8.8 g/dL (6.4-8.2)
[2022-11-26] MEDS ORDERED: NALO4SPR BNOSTRILS (13:34)
--- NOTE | 2022-11-26 13:45 | NUR ---
SW Consult: SW consult was requested for overdose. Pt appeared to be pleasant and cooperative. Pt was alert and oriented x3 (self,place,situation). Pt appeared to be anxious. He reported that he had took "a lot of oxycodin". He stated that he hasn't been using oxycodin. Pt reported he has been out of treatment. Pt denied suicidal or homicidal ideation. Pt denied visual/auditory hallucinations. Pt stated he would want to go home and he lives alone. 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 Pt was accepting of substance resources. DC Plan: Pt lives alone and would want to return back home located at [id number] [place] [address], [place] [address]. Substance Abuse resources provided included: [facility] Substance Abuse Self-Helpline ([facility]) ; [facility] [address] [facility]. [place] [id number] ; [facility] [address] [facility] [phone] ; [facility] [address] [facility] [phone] ; [facility] [address] [facility] [phone] ; [facility] [address] [facility] [phone] ; [facility] [address] [facility] [phone] ; [facility] Substance Abuse Helpline([facility])-[facility] ; [facility] ; [facility] [place]; [facility] [place]; [facility] [place]; [facility]; [facility] [place]; [facility], [facility]. [place]anny [place]; Alcoholics Anonymous -sfv; Chris ; Marijuana Anonymous -[facility]; Narcotics Anonymous www.na.org;
--- NOTE | 2022-11-26 13:45 | NUR ---
Patient discharged to home in stable condition. Written and verbal after care instructions given. Patient verbalizes understanding of instruction.IV removed. Catheter intact and site benign. Pressure and 4x4 applied to site. No bleeding noted.
[2022-11-26 13:46] VITALS: BP 122/74
== END 2022-11-26 15:57 | disposition home or self-care (01) ==
LOC: ER 10:16
DX: T40.2X1A Poisoning by other opioids, accidental (unintentional), initial encounter (principal); I10 Essential (primary) hypertension; F32.A Depression, unspecified; F41.9 Anxiety disorder, unspecified; F17.200 Nicotine dependence, unspecified, uncomplicated; Z79.899 Other long term (current) drug therapy; Z90.49 Acquired absence of other specified parts of digestive tract; Y92.89 Other specified places as the place of occurrence of the external cause
CPT/HCPCS: 36415; 80048-TC; 80076-TC; 85025-TC; G0480